=== PATIENT | female | born 1945 | race African-American/Black ===

== ENCOUNTER 2024-01-22 00:44 | Emergency (ER) | payer OTHER, SELFPAY ==
[2024-01-22 00:49] VITALS: BP 165/80
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
[2024-01-22 01:30] VITALS: BP 155/67
[2024-01-22 01:32] VITALS: BMI 22.9
--- NOTE | 2024-01-22 01:38 | EDRN ---
Pt says she lives in a [place] [facility] in [place]. Pt complains of pain in L knee from fall 1 month ago as well as swelling in L lower leg that has been there for 1 month. Pt has had congestion for the past 1-2 weeks and says she keeps blowing
her nose but nothing comes out. Pt says her ears and throat hurt. Pt with occasional dry cough. Pt denies cp, sob, abd pain, n/v, fever/chills, dizziness, weakness. Pt has not seen a doctor for any of her complaints and says she has a doctor
from [facility] that she is trying to see before [place]. Pt says she took an Uber from [place] to but will not say why she did this. Pt is on medications and says she takes them regularly.
[2024-01-22 01:48] LABS: COVID-19 Antigen Negative (Negative)
--- NOTE | 2024-01-22 02:13 | EDRN ---
Per Danni Knott, CLYDE pt would not allow US of her leg to be done.
[2024-01-22] MEDS: TYLENOL 650 MG PO (02:22)
[2024-01-22 02:25] VITALS: BP 154/76
--- NOTE | 2024-01-22 02:42 | EDRN ---
Pt given discharge instructions but would not sign for them. Pt says she has been taking tylenol for pain. Pt asked this RN to get her an Uber and was informed why this RN cannot order an Uber. Pt then said she had to call [phone]. Asked pt if
she used [employer] and she said yes. Pt said she was told to call when she needed a ride home. Charge nurse, Michael, called taxi service and there is no one to pick pt up until morning time. Pt was informed of this and argued that she was told
she could call and get picked up. Explained at this hour there is no one to do so. Pt said she will wait in the waiting room for someone to pick her up. Pt asked about getting penicillin. Explained virus/bacteria and use of abx and why she does
not need an abx. Pt says she has been putting medicated patches on her L leg and wrapping it. Encouraged pt to follow up with her PCP regarding ongoing issues she is concerned about and to keep her leg elevated as often as possible. Reassured pt
there is no fx in her L knee and she does not have covid or the flu. Pt says she has to make phone calls and was given a phone to do so. Pt getting dressed.
--- NOTE | 2024-01-22 02:56 | EDRN ---
Pt has her pants on and is standing in room reading discharge paperwork. Asked pt if she is ready for a wheelchair and she said she needs to finish getting dressed. Pt asked what is wrong with the phone. Explained about dialing 9 first and
offered to help pt dial a phone number which she declined.
--- NOTE | 2024-01-22 03:31 | EDRN ---
0310: Pt walked out of her room with all belongings from room and sat in waiting wheelchair. Pt asked this RN 'Why can't I be hooked up with the behavior center?' Asked pt to clarify and she read off her discharge instructions that there is
[facility], [facility]. Asked pt if she would like to talk with crisis and she said yes. Called crisis and was told to put pt in their waiting room. Pt wheeled to crisis and placed in waiting room. Report given to
workers compensation analyst.
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
== END 2024-01-22 03:10 | disposition home or self-care (01) ==
LOC: EMR 00:44
PROVIDERS: Nurse Practitioner; EMERGENCY PHYSICIAN Emergency Medicine
DX: B34.9 Viral infection, unspecified (principal); M25.562 Pain in left knee; M79.662 Pain in left lower leg; R03.0 Elevated blood-pressure reading, without diagnosis of hypertension; Z59.01 Sheltered homelessness; Z11.52 Encounter for screening for COVID-19
CPT/HCPCS: 99284; 73564; 87502; 87811